=== PATIENT | female | born 1980 | race Asian ===

== ENCOUNTER 2017-05-29 17:54 | Emergency (ER) | payer BC ==
[~2017-05-29] VITALS: Ht 149.9 cm; Wt 94.3 kg
[2017-05-29 18:58] LABS: PLATELET COUNT 309 K/uL (152-353)
[2017-05-29 19:33] VITALS: BP 120/66; TEMP 98.9
== END 2017-05-29 19:34 | disposition home or self-care (01) ==
LOC: ED 17:54
DX: J02.0 Streptococcal pharyngitis (principal)
CPT/HCPCS: 36415; 85027; 87880; 99283

== ENCOUNTER 2017-10-30 16:19 | Emergency (ER) | payer BC ==
[~2017-10-30] VITALS: Ht 149.9 cm; Wt 97.1 kg
[2017-10-30 16:33] VITALS: BP 141/86; TEMP 98.6
[2017-10-30 17:55] LABS: PLATELET COUNT 305 K/uL (152-353)
[2017-10-30 18:00] LABS: POTASSIUM 3.7 mmol/L (3.6-5.2); SODIUM 136 mmol/L (136-145)
== END 2017-10-30 19:14 | disposition home or self-care (01) ==
LOC: ED 16:19
PROVIDERS: Specialist
DX: R10.9 Unspecified abdominal pain (principal); K21.9 Gastro-esophageal reflux disease without esophagitis
CPT/HCPCS: 36415; 80053; 81000; 82150; 83690; 85027; 99283

== ENCOUNTER 2018-01-12 15:39 | Emergency (ER) | payer BC ==
[~2018-01-12] VITALS: Ht 124.5 cm; Wt 98.4 kg
[2018-01-12 16:30] VITALS: BP 141/83; TEMP 98.5
== END 2018-01-12 16:30 | disposition home or self-care (01) ==
LOC: ED 15:39
DX: M54.9 Dorsalgia, unspecified (principal); Z33.1 Pregnant state, incidental
CPT/HCPCS: 81000; 81025; 99283

== ENCOUNTER 2019-04-29 10:51 | Outpatient (CLI) | payer OTHER | END 2019-04-29 19:01 | disposition home or self-care (01) | LOC: RAD 10:51 | DX: M54.17 Radiculopathy, lumbosacral region (principal) ==

== ENCOUNTER 2019-05-05 08:10 | Outpatient (CLI) | payer OTHER | END 2019-05-05 20:40 | disposition home or self-care (01) | LOC: US 08:10 | DX: I80.02 Phlebitis and thrombophlebitis of superficial vessels of left lower extremity (principal) ==